=== PATIENT | female | born 1945 | race Hispanic/Latino ===

== ENCOUNTER 2020-11-04 06:09 | Day surgery (SDC) | payer MEDICARE ==
[2020-11-01 16:07] LABS: APPEARANCE,URINE Cloudy (CLEAR); BILIRUBIN,URINE Negative (NEGATIVE); COLOR,URINE Yellow (YELLOW); GLUCOSE, URINE (UA) Negative (NEGATIVE); KETONES,URINE Negative (NEGATIVE); LEUKOCYTE ESTERASE ,URINE Trace (NEGATIVE); NITRATE,URINE Negative (NEGATIVE); OCCULT BLOOD,URINE Negative (NEGATIVE); PROTEIN,URINE Negative (NEGATIVE); UROBILINOGEN,URINE 0.2 mg/dL (0.2-1.0)
[2020-11-01 16:07] LABS: BASOPHILS % (AUTO) 0.9 % (0.0-5.0); HEMATOCRIT 37.4 % (36-48); LYMPHOCYTES % (AUTO) 38.6 % (21.0-51.0); MEAN CORPUSCULAR HEMOGLOBIN 31.2 pg (27.0-33.0); MEAN CORPUSCULAR HGB CONC 32.9 g/dL (32.0-36.0); MEAN CORPUSCULAR VOLUME 94.9 fL (79-99); MONOCYTES % (AUTO) 5.6 % (3.0-13.0); NEUTROPHILS % (AUTO) 50.6 % (40.0-77.0); PLATELET COUNT (AUTO) 335 K/uL (130-400); RED BLOOD CELL COUNT(AUTO) 3.94 MIL/uL (4.00-5.50); RED CELL DISTRIBUTION WIDTH 11.8 % (11.0-15.5)
[2020-11-01 16:14] LABS: CREATININE 1.1 mg/dL (0.5-1.5); POTASSIUM 5.2 mmol/L (3.5-5.1)
[2020-11-01 16:15] LABS: PROTHROMBIN TIME 10.9 SEC (9.6-11.6)
[2020-11-01 16:17] LABS: PARTIAL THROMBOPLASTIN TIME 29.2 SEC (26.3-35.5)
[2020-11-01 16:56] LABS: BACTERIA,URINE Moderate /HPF (None Seen); RBC,URINE 0-1 /HPF (0-1); SQUAMOUS EPITHELIAL CELL,UR Few /HPF (0-2)
[2020-11-03 12:06] VITALS: BP 140/75
[~2020-11-04] VITALS: Ht 152.4 cm; Wt 57.6 kg
[2020-11-04] VITALS (9 sets, daily range): BP systolic 125–137; BP diastolic 55–60
[~2020-11-04 06:09] MED LIST: ASPI-1443 PO; ATOR40TA71 PO; BIMA2.5D4 OU; BRIM5DRO OU; CLOP75TA32 PO; FAMO20TA8 PO; INSLAN SQ; LISI20TA24 PO; LORA10TA7 PO; MECL-226 PO; METO25TA6 PO; SITA1TBM PO
[2020-11-04] MEDS ORDERED: NACL 0.9% 1000ML 1,000 ML IV ONE (06:11)
[2020-11-04] MEDS ORDERED: NITR0.4T50 SL (07:36)
[2020-11-04] MEDS ORDERED: HEPARIN 10,000 UNIT/10ML (1,000 UNIT/ML) VIAL ONE (09:03)
[2020-11-04] MEDS ORDERED: FENTANYL CITRATE PF 50 MCG/1 ML 2ML VIAL ONE (09:03)
[2020-11-04] MEDS ORDERED: MIDAZOLAM HCL 1 MG/ML 2ML VIAL ONE (09:03)
[2020-11-04] MEDS ORDERED: NITROGLYCERIN 2 MG VIAL IV ONE (09:03)
[2020-11-04] MEDS ORDERED: LIDOCAINE HCL 400MG/20ML VIAL ONE (09:04)
[2020-11-04] MEDS ORDERED: IOHEXOL-350 75 ML VIAL IV ONE (09:05)
== END 2020-11-04 14:25 | disposition home or self-care (01) ==
LOC: DAH 06:09
PROVIDERS: ATTEND Internal Medicine Cardiovascular Disease
DX: R07.9 Chest pain, unspecified (principal); I10 Essential (primary) hypertension; I25.10 Atherosclerotic heart disease of native coronary artery without angina pectoris; E78.00 Pure hypercholesterolemia, unspecified; E11.51 Type 2 diabetes mellitus with diabetic peripheral angiopathy without gangrene; Z79.899 Other long term (current) drug therapy; Z79.4 Long term (current) use of insulin; Z79.82 Long term (current) use of aspirin
CPT/HCPCS: 36415; 71045; 80048; 81001; 82948 ×2; 85025; 85610; 85730; 87077; 87088; 87186; 93005; 93458; A4215; A4216; A4221; A4222; A4223 ×3; A4606; A4663; C1760; C1894 ×3; J1644; J2250; J3010; J3490 ×2; J7030; Q9967; 99156; 99157